=== PATIENT | male | born 1930 | race Caucasian/White ===

== ENCOUNTER 2018-05-28 18:35 | Emergency (ER) | payer BC, MEDICARE ==
[~2018-05-28] VITALS: Ht 188 cm; Wt 97.5 kg
[2018-05-28 18:41] VITALS: Ht 188 cm; Wt 97.5 kg
[2018-05-28] MEDS ORDERED: SOD CHLORIDE 0.9% 1,000 ML IV STA (19:08)
--- NOTE | 2018-05-28 20:33 | ERD ---
ER Documentation Chief Complaint Chief Complaint dizziness, light headedness; low bp this afternoon. HPI 87-year-old male brought in by his for low blood pressure and lightheadedness that started around 1 PM today. The patient was playing pool when he started to feel somewhat lightheaded. He drove himself home and per his was clammy and complaining of dizziness. She took his blood pressure and it was 88/62 with a pulse of 84. She continued to monitor his blood pressure for 3 hours and it stayed low in the 80s-100s with a systolic in the 60s. His last few heart rate measurements were in the 60s. Since he was not improving, she brought him in for evaluation. This happened a few weeks ago but not this severe. They told her primary care doctor, Dr. Mendiola about it but were not seen by a physician at that time. He denies any associated chest pain but did have some what he calls fatigue and some shortness of breath at the time he was not feeling well. He denies any vomiting or diarrhea. He does not think that he is dehydrated but is not sure. He is urinating normally. Denies any headache, nausea, vomiting, focal weakness or numbness. ROS All systems reviewed and are negative except as per history of present illness. Allergies Allergies: Coded Allergies: No Known Allergy (Unverified , 05/28/18) PMhx/Soc Hx Cardiac Disorders: Yes (Hypertension) Hx Miscellaneous Medical Probl: Yes (Hypothyroid, high cholesterol) Hx Alcohol Use: No Hx Substance Use: No Hx Tobacco Use: No Smoking Status: Unknown if ever smoked FmHx Family History: No diabetes Physical Exam Vitals Vital Signs Date Temp Pulse Resp B/P (MAP) Pulse Ox O2 O2 Flow FiO2 Time Delivery Rate 05/28/18 97.8 69 18 121/80 100 Room Air 19:25 (94) 05/28/18 69 121/80 100 Room Air 19:21 (94) 05/28/18 65 135/74 100 Room Air 19:20 (94) 05/28/18 63 128/72 100 Room Air 19:19 (90) 05/28/18 97.8 63 18 142/65 100 18:41 (90) Physical Exam Const: No acute distress, well-appearing Head: Atraumatic Eyes: Normal Conjunctiva ENT: Dry mucous membranes. Normal External Ears, Nose and Mouth. Neck: Full range of motion. No meningismus. No JVD Resp: Clear to auscultation bilaterally Cardio: Regular rate and rhythm, no murmurs. 2+ distal pulses in all 4 extremities Abd: Soft, non tender, non distended. Normal bowel sounds Skin: No petechiae or rashes Back: No midline or flank tenderness Ext: No cyanosis, or edema. No calf tenderness Neur: Awake and alert, oriented x3, normal speech, no facial asymmetry, strength and sensations intact in all 4 extremities Psych: Normal Mood and Affect Result Diagram: 05/28/18191105/28/181911 Results 24 hrs Laboratory Tests Test 05/28/18 19:03 05/28/18 19:12 05/28/18 19:52 Bedside Glucose 94 mg/dL White Blood Count 10.6 10^3/ul Red Blood Count 4.67 10^6/ul Hemoglobin 14.1 g/dl Hematocrit 43.2 % Mean Corpuscular Volume 92.5 fl Mean Corpuscular Hemoglobin 30.2 pg Mean Corpuscular 32.6 g/dl Hemoglobin Concent Red Cell Distribution Width 13.3 % Platelet Count 216 10^3/UL Mean Platelet Volume 11.9 fl Immature Granulocytes % 0.500 % Neutrophils % 71.5 % Lymphocytes % 17.4 % Monocytes % 8.7 % Eosinophils % 1.5 % Basophils % 0.4 % Nucleated Red Blood Cells % 0.0 /100WBC Immature Granulocytes # 0.050 10^3/ul Neutrophils # 7.6 10^3/ul Lymphocytes # 1.8 10^3/ul Monocytes # 0.9 10^3/ul Eosinophils # 0.2 10^3/ul Basophils # 0.0 10^3/ul Nucleated Red Blood Cells # 0.0 10^3/ul Sodium Level 142 mmol/L Potassium Level 4.1 mmol/L Chloride Level 106 mmol/L Carbon Dioxide Level 25 mmol/L Anion Gap 11 Blood Urea Nitrogen 24 mg/dl Creatinine 0.82 mg/dl Est Glomerular Filtrat mL/min Rate mL/min Glucose Level 91 mg/dl Calcium Level 9.7 mg/dl Troponin I < 0.012 ng/ml Urine Color JHONNY Urine Clarity CLOUDY Urine pH 5.0 Urine Specific [place] 1.017 Urine Ketones TRACE mg/dL Urine Nitrite NEGATIVE mg/dL Urine Bilirubin NEGATIVE mg/dL Urine Urobilinogen NEGATIVE mg/dL Urine Leukocyte Esterase NEGATIVE Neville/ul Urine Microscopic RBC 1 /HPF Urine Microscopic WBC 3 /HPF Urine Mucus FEW /HPF Urine Hemoglobin NEGATIVE mg/dL Urine Glucose NEGATIVE mg/dL Urine Total Protein NEGATIVE mg/dl Current Medications Medications Dose Sig/Paramjit Start Time Status Last (Trade) Ordered Route PRN Stop Time Admin Dose Reason Admin Sodium 1,000 ml @ Q1H STAT 05/28/18 DC 05/28/18 Chloride 1,000 mls/hr IV 19:08 19:21 05/28/18 20:07 Procedures/MDM EMERGENT LABS AND DIAGNOSTIC STUDIES: Lab Results above were reviewed and interpreted by me. CBC: no anemia or evidence of infection BMP: Slightly elevated BUN, consistent with prerenal azotemia. No evidence of electrolyte abnormality, renal failure, hypoglycemi Troponin within normal limits, not indicative of cardiac ischemia UA: no evidence of infection 12-lead EKG was interpreted by Duy Dove MD: Sinus rhythm with first-degree AV block at 65 bpm Right bundle branch block No acute ST or T wave changes suggestive of acute ischemia or STEMI. Radiology Results as interpreted by Radiology below were reviewed by Velasquez Dove MD: Chest x-ray shows no acute abnormalities Initial Nursing notes reviewed. Previous Medical Records requested via the Electronic Health Record. EMERGENCY DEPARTMENT COURSE / MEDICAL DECISION MAKING: Patient is presenting with lightheadedness and hypotension that has resolved upon arrival. The patients vitals are within normal limits at this time and he is asymptomatic. Labs were done showing evidence of prerenal azotemia. The ECG did not show any concerning abnormalities. I have a low suspicion for an arrhythmia, acute coronary syndrome, PE or a CVA or intracranial hemorrhage. Etiology for syncope is likely due to mild dehydration. He was given 1 L IV fluid bolus. Patient's syncopal symptoms have stabilized while in the department and are suitable for outpatient follow up. I advised follow up with primary care physician in 1-2 days. Return precautions were discussed at bedside. Patient's blood pressure was elevated (>120/80) but appears stable without evidence of hypertensive emergency or urgency. The patient was counseled about the risks of hypertension and urged to pursue outpatient monitoring and therapy within a week with their primary care physician. Departure Diagnosis: Primary Impression: Mild dehydration Additional Impressions: Transient hypotension Near syncope Condition: Stable Patient Instructions: Dehydration, Low Blood Pressure (Hypotension), Hypotension, Orthostatic Additional Instructions: Return to the ER for any worsening symptoms. Stay well-hydrated. MAHSA DOVE MD May 28, 2018 20:33
[2018-05-28 20:49] VITALS: BP 136/82; PULSE 56; RESP 18
== END 2018-05-28 20:33 | disposition home or self-care (01) ==
LOC: E/R 18:35
DX: I95.9 Hypotension, unspecified (principal); E86.0 Dehydration; R55 Syncope and collapse; I10 Essential (primary) hypertension; E03.9 Hypothyroidism, unspecified
CPT/HCPCS: 36415; 71045; 80048; 81001; 82962; 84484; 85025; 93005; 99285; J7030